=== PATIENT | male | born 1985 | race Two or more races ===

== ENCOUNTER 2022-05-05 16:34 | Emergency (ER) | payer SELFPAY ==
[~2022-05-05] VITALS: Ht 170.2 cm; Wt 80.0 kg
[2022-05-05 16:52] VITALS: BP 154/90
[2022-05-05] MEDS ORDERED: KETOROLAC TROMETH 60MG/2ML VIAL IM ONE (18:30)
== END 2022-05-05 19:58 | disposition home or self-care (01) ==
LOC: ER 16:34
DX: R51.9 Headache, unspecified (principal)
CPT/HCPCS: 93005; 96372; 99283; J1885